=== PATIENT | male | born 1950 | race Caucasian/White ===

== ENCOUNTER → 2021-01-08 | Outpatient (CLI) | payer MEDICARE | LOC: COL.RAD 07:30 | DX: M51.36 Other intervertebral disc degeneration, lumbar region (principal); M47.816 Spondylosis without myelopathy or radiculopathy, lumbar region; M47.817 Spondylosis without myelopathy or radiculopathy, lumbosacral region; M48.061 Spinal stenosis, lumbar region without neurogenic claudication; M48.07 Spinal stenosis, lumbosacral region; M25.78 Osteophyte, vertebrae; M21.372 Foot drop, left foot ==

== ENCOUNTER → 2022-04-01 | Outpatient (CLI) | payer MEDICARE | LOC: MHCPAIN 10:46 | DX: M99.9 Biomechanical lesion, unspecified (principal); M21.372 Foot drop, left foot; G83.21 Monoplegia of upper limb affecting right dominant side; R20.0 Anesthesia of skin; Z98.1 Arthrodesis status | CPT/HCPCS: G0463 ==